=== PATIENT | male | born 1990 | race Two or more races ===

== ENCOUNTER 2019-09-08 17:00 | Emergency (ER) | payer MEDICAID, OTHER ==
[~2019-09-08] VITALS: Ht 195.6 cm; Wt 197.0 kg
[2019-09-08 17:05] VITALS: BP 154/93
[2019-09-08] MEDS ORDERED: LIDOcaine 1% W/epiNEPHrine 1:200,000 10ml vial IJ ONE (17:15)
[2019-09-08] MEDS ORDERED: TETanus/Pertussis (Acell)/Diphther VAC/PF (Tdap-Adult) 0.5ml syringe IMVAC ONE (17:15)
[2019-09-08] MEDS ORDERED: HYDROcodone/acetaminophen 5mg/325mg tablet PO ONE (18:30)
[2019-09-08] MEDS ORDERED: ceFAZolin 1gm IM kit IM ONE (18:30)
[2019-09-08] MEDS ORDERED: HYDR-3965 PO (18:32)
[2019-09-08] MEDS ORDERED: AMOX-422 PO (18:41)
== END 2019-09-08 19:02 | disposition home or self-care (01) ==
LOC: ER 17:01
DX: S62.634B Displaced fracture of distal phalanx of right ring finger, initial encounter for open fracture (principal); R50.9 Fever, unspecified; Z79.2 Long term (current) use of antibiotics; X58.XXXA Exposure to other specified factors, initial encounter; Y93.89 Activity, other specified; Y92.89 Other specified places as the place of occurrence of the external cause; Y99.8 Other external cause status
CPT/HCPCS: 29130; 73140; 90471; 90715; 96372; 99284; J0690

== ENCOUNTER 2019-09-19 09:18 | Emergency (ER) | payer MEDICAID, OTHER ==
[~2019-09-19 09:18] MED LIST: HYDR-3965 PO
[2019-09-19 09:56] VITALS: BP 164/104
== END 2019-09-19 09:57 | disposition home or self-care (01) ==
LOC: ER 09:18
DX: S61.214D Laceration without foreign body of right ring finger without damage to nail, subsequent encounter (principal); Z79.899 Other long term (current) drug therapy; X58.XXXD Exposure to other specified factors, subsequent encounter
CPT/HCPCS: 99281